=== PATIENT | male | born 1980 | race Caucasian/White ===

== ENCOUNTER 2016-11-27 15:27 | Emergency (ER) | payer OTHER ==
--- NOTE | ~2016-11-27 | CR181 ---
[facility] A Service of [facility] RADIOLOGY TEXT RESULTS PATIENT: MEKHI SAEZ LOCATION: SED : 84 UNIT #: [id number] AGE: [address]: Latosha Simon APRN SEX: M ORDER DR: [id number] [address] [address] [id number] E MR#: [id number] Acc #: [id number] NAME: MEKHI SAEZ : 1980 SEX: M STUDY DATE/TIME: 11/27/2016 15:40 UNIT: SED ROOM: STUDY DESCRIPTION: CR Lumbar Spine 2 or 3 Views Attending Physician: Latosha Simon A.P.R.N. Ordering Physician: Latosha Cutler A.P.R.N. Primary Care Physician: No Primary Care Physician MEDICAL IMAGING REPORT This report is preliminary unless electronic signature is present. EXAM Lumbar spine study HISTORY Low back pain. Plain films of the lumbar spine for low back pain that started yesterday. No known injury. COMMENT AP, lateral, and lumbosacral views of the lumbar spine are reviewed. 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 This will be called S1 partially lumbarized with a hypoplastic S1-2 disc. There is some low lumbar facet degenerative change. There is also some mild loss of intervertebral disc height at L5-S1 and L4-5. IMPRESSION 1. Lumbar degenerative changes. Details provided above. No acute fracture, bone destruction, or malalignment. Patient has a transitional lumbosacral vertebral body which is called S1 for the purpose of this study which has a pseudoarticulation on the right side. Dictated by... Heena Bautista M.D. THIS IS AN ELECTRONICALLY VERIFIED REPORT Heena Bautista M.D. at 11/28/2016 3:08 PM LESVIA/arpita TD: 11/28/2016 11:37 [facility] A Service of [facility] RADIOLOGY TEXT RESULTS PATIENT: MEKHI SAEZ LOCATION: SED : 84 UNIT #: [id number] AGE: [address]: Latosha Simon APRN SEX: M ORDER DR: JOB #: [id number] MEDICAL IMAGING REPORT Page 1 of 1
[~2016-11-27 15:27] MED LIST: AMOXICILLIN875 MG PO; LORTAB 10 MG-3473 ML PO; NO MEDICATIONS; ZITHROMAX PO
== END 2016-11-27 16:43 | disposition home or self-care (01) ==
LOC: SED 15:27
DX: M51.36 Other intervertebral disc degeneration, lumbar region (principal); F17.210 Nicotine dependence, cigarettes, uncomplicated
CPT/HCPCS: 72100; 96372; 99283; J1885

== ENCOUNTER 2017-05-04 09:08 | Emergency (ER) | payer OTHER ==
--- NOTE | ~2017-05-04 | CR63 ---
[facility] A Service of [facility] & [facility] RADIOLOGY TEXT RESULTS PATIENT: MEKHI SAEZ LOCATION: SED : 82 UNIT #: [id number] AGE: [address]: Gris Harry MD SEX: M ORDER DR: [id number] [place] [id number] E MR#: [id number] Acc #: [id number] NAME: MEKHI SAEZ : 1980 SEX: M STUDY DATE/TIME: 05/04/2017 9:40 UNIT: SED ROOM: STUDY DESCRIPTION: CR Chest 2 View Attending Physician: Gris Harry M.D. Ordering Physician: Gris Harry M.D. Primary Care Physician: Primary Care Physician No MEDICAL IMAGING REPORT This report is preliminary unless electronic signature is present. EXAM Chest x-ray 11/01 INDICATIONS Dropped object on chest on Tuesday of this week. Right-side chest pain. FINDINGS PA and lateral examination of the chest upright shows a good expansion of the parenchyma with a normal distribution of the pulmonary vascularity. There is no indication of congestion, effusion, infiltrate, tumor, or nodular density. The pleural reflections and diaphragmatic contours are normal. The cardiac silhouette and mediastinal anatomy is within normal limits. IMPRESSION Normal chest. Dictated by... Tom John Jr., M.D. THIS IS AN ELECTRONICALLY VERIFIED REPORT Tom John Jr., M.D. at 05/05/2017 8:29 AM RLK/hernandez TD: 05/04/2017 16:49 JOB #: [id number] MEDICAL IMAGING REPORT Page 1 of 1
== END 2017-05-04 10:35 | disposition home or self-care (01) ==
LOC: SED 09:08
DX: S20.211A Contusion of right front wall of thorax, initial encounter (principal); F17.200 Nicotine dependence, unspecified, uncomplicated; W22.8XXA Striking against or struck by other objects, initial encounter; Y92.69 Other specified industrial and construction area as the place of occurrence of the external cause; Y99.0 Civilian activity done for income or pay
CPT/HCPCS: 71020; 99283

== ENCOUNTER 2017-05-10 11:20 | Emergency (ER) | payer OTHER ==
[~2017-05-10] VITALS: Ht 185.4 cm; Wt 72.6 kg
--- NOTE | ~2017-05-10 | CR211 ---
[facility] A Service of [facility] & [facility] RADIOLOGY TEXT RESULTS PATIENT: MEKHI SAEZ LOCATION: CFTX : [birth year] UNIT #: [id number] AGE: [address]: Elza Trejo SEX: M ORDER DR: [id number] [facility] [address] [place], [place] [address] [id number] E MR#: [id number] Acc #: [id number] NAME: MEKHI SAEZ : 1980 SEX: M STUDY DATE/TIME: 05/10/2017 12:07 UNIT: [facility] ROOM: STUDY DESCRIPTION: CR Ribs Uni 2 View W PA Ch Rt Attending Physician: Elza Trejo Pa-C Ordering Physician: Elza Trejo Pa-C Primary Care Physician: No Primary Care Physician MEDICAL IMAGING REPORT This report is preliminary unless electronic signature is present EXAM Right rib series and PA chest. INDICATIONS Right rib pain since fall in tub last night. FINDINGS A PA view of the chest and oblique views of the right ribs were obtained. The heart size and vascularity are normal, and the lungs are clear. I believe there is a fracture of the right 9th rib anteriorly. IMPRESSION One view of the rib series, suggests an anterior right 9th rib fracture, otherwise, the study is normal. Dictated by... Sriram Flores M.D. THIS IS AN ELECTRONICALLY VERIFIED REPORT Sriram Flores M.D. at 05/11/2017 7:08 AM MARY/moy TD: 05/10/2017 21:03 JOB #: [id number] MEDICAL IMAGING REPORT Page 1 of 1 COPY
== END 2017-05-10 13:29 | disposition home or self-care (01) ==
LOC: CED 11:20 → CFTX 11:20
DX: S22.31XA Fracture of one rib, right side, initial encounter for closed fracture (principal); F17.210 Nicotine dependence, cigarettes, uncomplicated; W01.0XXA Fall on same level from slipping, tripping and stumbling without subsequent striking against object, initial encounter; Y92.009 Unspecified place in unspecified non-institutional (private) residence as the place of occurrence of the external cause
CPT/HCPCS: 71101; 99283